=== PATIENT | female | born 2000 | race Caucasian/White ===

== ENCOUNTER 2022-07-26 12:54 | Emergency (ER) | payer OTHER ==
[2022-07-26] MEDS ORDERED: Ketorolac Tromethamine 30 MG/ML VIAL ONE (13:16)
[2022-07-26] MEDS ORDERED: Phenazopyridine HCl 100 MG TAB PO SCH (14:00)
[2022-07-26 14:18] LABS: Bilirubin Negative (Negative); Blood, Urine Negative (Negative); Clarity Clear (Clear); Glucose, Urine (Dipstick) Normal (Negative); Ketone, Urine Negative (Negative); Leukocyte Negative Leu/uL (Negative); Nitrite Negative (Negative); Protein, Urine (Dipstick) 10 mg/dL (Neg-Trace); Specific Gravity, Urine 1.033 (1.002-1.036); Urobilinogen 3 mg/dL (Less than 2); pH, Urine 5.5 (5.0-9.0)
[2022-07-26] MEDS ORDERED: Lidocaine 1% PF 5 ML VIAL ONE (14:52)
[2022-07-26] MEDS ORDERED: cefTRIAXone (ROCEPHIN) 500 MG VIAL ONE (14:52)
[2022-07-27 11:17] LABS: Chlamydia by PCR, Vaginal Swab Not Detected (NotDetected); GC by PCR, Vaginal Swab Not Detected (NotDetected); Tric.vaginalis PCR,Vaginal Sw Not Detected (NotDetected)
== END 2022-07-26 15:12 | disposition home or self-care (01) ==
LOC: ERS 12:54
DX: N76.0 Acute vaginitis (principal)
CPT/HCPCS: 81003; 87077; 87086; 87186; 87480; 87491; 87510; 87591; 87660; 87661; 96372; 99283; J0696; J1885